=== PATIENT | female | born 2000 | race African-American/Black ===

== ENCOUNTER 2021-04-01 05:17 | Emergency (ER) | payer OTHER ==
[2021-04-01] MEDS ORDERED: Ketorolac Tromethamine 30 MG/ML VIAL ONE (05:38)
[2021-04-01] MEDS ORDERED: Metoclopramide HCl 10 MG/2 ML VIAL ONE (05:39)
== END 2021-04-01 06:49 | disposition home or self-care (01) ==
LOC: CSHERS 05:17
DX: G43.909 Migraine, unspecified, not intractable, without status migrainosus (principal)
CPT/HCPCS: 96374; 96375; J1885; J2765

== ENCOUNTER 2022-01-16 07:09 | Emergency (ER) | payer OTHER | END 2022-01-16 07:53 | disposition home or self-care (01) | LOC: CSHERS 07:09 | DX: R50.9 Fever, unspecified (principal); J02.9 Acute pharyngitis, unspecified; Z20.822 Contact with and (suspected) exposure to COVID-19 | CPT/HCPCS: 87081; 87430; 99283; U0003; U0005 ==

== ENCOUNTER 2022-04-21 09:35 | Emergency (ER) | payer OTHER | END 2022-04-21 12:21 | disposition home or self-care (01) | LOC: CSHERS 09:35 | DX: G43.909 Migraine, unspecified, not intractable, without status migrainosus (principal) | CPT/HCPCS: 99282 ==